=== PATIENT | male | born 1985 | race Caucasian/White ===

== ENCOUNTER → 2025-05-07 | Outpatient (CLI) | payer OTHER, SELFPAY ==
--- NOTE | 2025-05-07 09:15 | VAS_PTH ---
PATIENT: BRISA POND [facility] U#:[id number] AGE/SX: 40/M ROOM: RE05/07/[address]: Dr. Alex Rubio MD : 1985 BED: DIS: 05/07/2025 SPEC #: [id number] RECD: 05/07/25 10:56 STATUS: LAW REAngelika #: [id number] LEANN: 05/07/25 09:[address]: Alex Rubio DEPT: SURGICAL PATHOLOGY RECD BY: Rayshawn Leahy ENTERED: 05/07/25 11:10 SP TYPE: VAS OTHR DR: Rhoda Langely, DIRECTOR SPEECH LANGUAGE-C Tissues: A - Vas deferens, NOS Procedures: Surgery Specimen Level II HEADER OPERATION: Bilateral partial vasectomy PRE-OP DIAGNOSIS: Sterilization TISSUE SUBMITTED: A- Right vas deferens, B- Left vas deferens MICROSCOPIC DIAGNOSIS A.Vas deferens, right, vasectomy: Benign vas deferens with complete cross section obtained B.Vas deferens, left vasectomy: Benign vas deferens with complete cross section obtained MICROSCOPIC DESCRIPTION Slides are reviewed. GROSS DESCRIPTION Received in 2 formalin containers labeled with the patient's name and date of . Designated as: A. R vas deferens is a villeda-white, cylindrical portion of tissue, 1.1 cm in length by 0.3 cm in diameter. The specimen is inked black, sectioned and entirely submitted in 1 cassette. B. L vas deferens is a villeda-white cylindrical portion of tissue, 0.9 cm in length by 0.2 cm in diameter. The specimen is inked green, sectioned and entirely submitted in 1 cassette. [place] 05/07/2025 CPT:48535i5
== END | disposition home or self-care (01) ==
LOC: LABSPEC 11:02
PROVIDERS: Referring Provider Surgery; Visit Provider Surgery
DX: Z30.2 Encounter for sterilization (principal)
CPT/HCPCS: 88302

== ENCOUNTER → 2025-07-16 | Outpatient (CLI) | payer OTHER, SELFPAY | END | disposition home or self-care (01) | PROVIDERS: Referring Provider Surgery; Visit Provider Surgery | DX: Z00.00 Encounter for general adult medical examination without abnormal findings (principal) ==